=== PATIENT | female | born 1935 | race American Indian/Alaskan Native ===

== ENCOUNTER 2017-10-02 11:00 | Emergency (ER) | payer MEDICARE ==
--- NOTE | 2017-10-02 11:36 | C.PDOC ---
History Of Present Illness 81 y/o female, w/ PMhx of HTN, seizures, brain tumor ( remote) s/p surgery BIBA , from assisted living facility complaining of pain to right wrist. As per patient's son, there was an elevator door which closed on the patient's right wrist 1 month ago. Patient did not seek medical attention. There is no clear reason as to why the patient took 1 month to seek medical attention. Patient has a possible history of dementia, she does not remember how long the wrist has been hurting. She notes that the pain is constant and dull and she has decreased use of the right wrist. Denies having headache, fever, and chills. Time Seen by Provider: 10/02/17 11:12 Chief Complaint (Nursing): Upper Extremity Problem/Injury History Per: Patient History/Exam Limitations: no limitations Onset/Duration Of Symptoms: Days Current Symptoms Are (Timing): Still Present Severity: Moderate Past Medical History Reviewed: Historical Data, Nursing Documentation, Vital Signs Vital Signs: Last Vital Signs Temp 98.9 F 10/02/17 11:05 Pulse 95 H 10/02/17 11:05 Resp 14 10/02/17 11:05 BP 132/70 10/02/17 11:05 Pulse Ox 98 10/02/17 11:38 - Medical History PMH: HTN, Seizures Denies: Alzheimer's Disease, Anemia, Anxiety, Arthritis, Asthma, Bipolar Disorder, Bronchitis, Cardia Arrhythmia, CHF, COPD, Crohn's Disease, Dementia, Depression, Diverticulitis, Emphysema, Fibromyalgia, Fractures, Gastrointestinal Ulcer, Gall Bladder Disease, HIV, Hypercholesterolemia, Hyperthyroidism, Hypothyroidism, Kidney Stones, Migraine, Mitral Valve Prolapse , Osteoporosis, Pancreatitis, Paranoia, Parkinson's Disease, Peripheral Edema, Pneumonia, Post Traumatic Stress Disorder, Chronic Kidney Disease, Schizophrenia , Sickle Cell Disease, Sexually Transmitted Disease, Sleep Apnea, TIA Surgical History: Denies: Appendectomy, Cholecystectomy, Coronary Stent, Pacemaker Family History: States: No Known Family Hx - Social History Hx Tobacco Use: No Hx Alcohol Use: No Hx Substance Use: No - Immunization History Hx Tetanus Toxoid Vaccination: No Hx Influenza Vaccination: No Hx Pneumococcal Vaccination: No Review Of Systems Except As Marked, All Systems Reviewed And Found Negative. Constitutional: Negative for: Fever, Chills Musculoskeletal: Positive for: Other (right wrist pain) Neurological: Negative for: Headache Physical Exam - Physical Exam Appears: Non-toxic, No Acute Distress, Other (frail, elderly) Skin: Normal Color, Warm, Dry Head: Other (disfigurement tumor most likely due to tumor resection) Eye(s): bilateral: Normal Inspection Nose: Normal Oral Mucosa: Moist Neck: Supple Chest: Symmetrical Cardiovascular: Rhythm Regular Respiratory: Normal Breath Sounds, No Rales, No Rhonchi, No Wheezing Gastrointestinal/Abdominal: Normal Exam, Soft, No Tenderness, No Guarding, No Rebound Neurological/Psych: Oriented x3, Normal Speech ED Course And Treatment O2 Sat by Pulse Oximetry: 98 (RA) Pulse Ox Interpretation: Normal Medical Decision Making Medical Decision Making: Plan: --X-Ray- Right Wrist Patient daughter Cinthya Flower ([phone]) called to state she is working on getting the patient an aide. Spoke with PMD, Dr. Valentin, he was unaware of patient's injury. Requesting Dr. Morales for ortho. Disposition Discussed With Dr.: Juventino Valentin Counseled Patient/Family Regarding: Studies Performed, Diagnosis, Need For Followup - Disposition Referrals: Peewee Mcdonald MD [Staff Provider] - Disposition: HOME/ ROUTINE Disposition Time: 12:38 Condition: GUARDED Instructions: Common Wrist Injuries (DC) Forms: [facility] (Urdu), General Discharge Instructions - POA Present On Arrival: None - Clinical Impression Clinical Impression: Right wrist fracture - Scribe Statement The provider has reviewed the documentation as recorded by the Juanibe Bogdan Cheng Provider Attestation: All medical record entries made by the Scribe were at my direction and personally dictated by me. I have reviewed the chart and agree that the record accurately reflects my personal performance of the history, physical exam, medical decision making, and the department course for this patient. I have also personally directed, reviewed, and agree with the discharge instructions and disposition.
--- NOTE | 2017-10-02 12:07 | RAD ---
PROCEDURE: Right Wrist Radiographs. HISTORY: injury 1 month ago COMPARISON: None. FINDINGS: BONES: Comminuted, impacted, dorsally angulated fracture of the distal radius. Minimally displaced fracture of the ulnar styloid. JOINTS: Diffuse joint space narrowing. SOFT TISSUES: Circumferential soft tissue swelling. OTHER FINDINGS: None. IMPRESSION: Comminuted, impacted, dorsally angulated fracture of the distal radius. No definite intra-articular extension, although evaluation is difficult. Minimally displaced fracture of the ulnar styloid.
[2017-10-02 16:12] VITALS: BP 119/75; PULSE 83; RESP 16; TEMP 97.7; O2SAT 98
== END 2017-10-02 16:23 | disposition home or self-care (01) ==
LOC: C.ER 11:00
DX: S52.501A Unspecified fracture of the lower end of right radius, initial encounter for closed fracture (principal); W23.0XXA Caught, crushed, jammed, or pinched between moving objects, initial encounter; Y92.89 Other specified places as the place of occurrence of the external cause

== ENCOUNTER 2017-11-18 14:20 | Emergency (ER) | payer MEDICARE ==
[2017-11-18 15:28] VITALS: BP 136/84; PULSE 68; RESP 16; TEMP 97.8; O2SAT 100
--- NOTE | 2017-11-18 18:45 | C.PDOC ---
History Of Present Illness patient left ER prior to my history and physical Time Seen by Provider: 11/18/17 15:42 Chief Complaint (Nursing): Upper Extremity Problem/Injury Past Medical History Vital Signs: Last Vital Signs Temp 97.8 F 11/18/17 15:27 Pulse 68 11/18/17 15:27 Resp 16 11/18/17 15:27 BP 136/84 11/18/17 15:27 Pulse Ox 100 11/18/17 18:45 - Medical History PMH: HTN, Seizures Denies: Alzheimer's Disease, Anemia, Anxiety, Arthritis, Asthma, Bipolar Disorder, Bronchitis, Cardia Arrhythmia, CHF, COPD, Crohn's Disease, Dementia, Depression, Diverticulitis, Emphysema, Fibromyalgia, Fractures, Gastrointestinal Ulcer, Gall Bladder Disease, HIV, Hypercholesterolemia, Hyperthyroidism, Hypothyroidism, Kidney Stones, Migraine, Mitral Valve Prolapse , Osteoporosis, Pancreatitis, Paranoia, Parkinson's Disease, Peripheral Edema, Pneumonia, Post Traumatic Stress Disorder, Chronic Kidney Disease, Schizophrenia , Sickle Cell Disease, Sexually Transmitted Disease, Sleep Apnea, TIA Surgical History: Denies: Appendectomy, Cholecystectomy, Coronary Stent, Pacemaker Family History: States: Unknown Family Hx - Social History Hx Tobacco Use: No Hx Alcohol Use: No Hx Substance Use: No - Immunization History Hx Tetanus Toxoid Vaccination: No Hx Influenza Vaccination: No Hx Pneumococcal Vaccination: No ED Course And Treatment O2 Sat by Pulse Oximetry: 100 Disposition - Disposition Disposition: ELOPEMENT - ER ONLY Disposition Time: 16:00 Condition: UNKNOWN Forms: [employer] (Hebrew) - Clinical Impression Clinical Impression: Patient left without being seen
== END 2017-11-18 16:05 | disposition left against medical advice (07) ==
LOC: C.ER 14:20
DX: Z02.89 Encounter for other administrative examinations (principal); S69.91XA Unspecified injury of right wrist, hand and finger(s), initial encounter

== ENCOUNTER 2017-11-24 21:09 | Inpatient (IN) | payer MEDICAID, MEDICARE ==
--- NOTE | 2017-11-24 21:26 | C.PDOC ---
History Of Present Illness 81 year old female with PMHx of dementia, brain surgery is brought to the ED for evaluation. Patient was outside the [facility] saying "it is too hot" . Patient has history of dementia, states her is and she lives with her . Patient has chronic left sided facial droop. Patient denies fever, chills, nausea, vomit, CP, SOB, palpitations. Time Seen by Provider: 11/24/17 21:25 Chief Complaint (Nursing): Weakness/Neurological Deficit History Per: Patient, EMS History/Exam Limitations: clinical condition (history dementia) Onset/Duration Of Symptoms: Hrs Current Symptoms Are (Timing): Still Present Activity At Onset Of Symptoms: Sitting Associated Symptoms Preceding Syncopal Episode: No Predromal Symptoms (Sudden Onset) Seizure Or Post-ictal Symptoms: None Fall Associated With With Symptoms: No Severity: Moderate Pain Scale Rating Of: 4 Recent travel outside of the [place]: No Additional History Per: Patient, EMS - Symptoms Of CVA Current Coumadin Use?: No Recent Head Trauma: No Past Medical History Reviewed: Historical Data, Nursing Documentation, Vital Signs Vital Signs: Last Vital Signs Temp 98.6 F 11/24/17 21:13 Pulse 57 L 11/24/17 22:55 Resp 16 11/24/17 22:55 BP 145/56 L 11/24/17 22:55 Pulse Ox 99 11/24/17 22:55 - Medical History PMH: HTN, Seizures Denies: Alzheimer's Disease, Anemia, Anxiety, Arthritis, Asthma, Bipolar Disorder, Bronchitis, Cardia Arrhythmia, CHF, COPD, Crohn's Disease, Dementia, Depression, Diverticulitis, Emphysema, Fibromyalgia, Fractures, Gastrointestinal Ulcer, Gall Bladder Disease, HIV, Hypercholesterolemia, Hyperthyroidism, Hypothyroidism, Kidney Stones, Migraine, Mitral Valve Prolapse , Osteoporosis, Pancreatitis, Paranoia, Parkinson's Disease, Peripheral Edema, Pneumonia, Post Traumatic Stress Disorder, Chronic Kidney Disease, Schizophrenia , Sickle Cell Disease, Sexually Transmitted Disease, Sleep Apnea, TIA Surgical History: Denies: Appendectomy, Cholecystectomy, Coronary Stent, Pacemaker Family History: States: Unknown Family Hx - Social History Hx Tobacco Use: No Hx Alcohol Use: No Hx Substance Use: No - Immunization History Hx Tetanus Toxoid Vaccination: No Hx Influenza Vaccination: No Hx Pneumococcal Vaccination: No Review Of Systems Review Of Systems: ROS cannot be obtained secondary to pt's inabilty to answer questions. (duto her dementia) Physical Exam - Physical Exam Appears: Non-toxic Skin: Warm, Dry Head: Normacephalic, Other (chronic left sided facial droop) Eye(s): bilateral: Normal Inspection Oral Mucosa: Moist Neck: Supple Chest: Symmetrical Cardiovascular: Rhythm Regular Respiratory: Rales, No Rhonchi, No Wheezing Gastrointestinal/Abdominal: Soft, No Tenderness, No Guarding, No Rebound Back: Normal Inspection Extremity: No Tenderness, Pedal Edema (trace pedeal edema chronic ) Extremity: Bilateral: Atraumatic, Normal Color And Temperature, Normal ROM Pulses: Left Dorsalis Pedis: Normal, Right Dorsalis Pedis: Normal Neurological/Psych: No Oriented x3 (oriented X2) Disoriented To: Place Gait: Unsteady ED Course And Treatment - Laboratory Results Result Diagrams: 11/24/17 21:29 11/24/17 21:29 ECG: Interpreted By Me, Viewed By Me ECG Rhythm: Sinus Rhythm (68), Nonspecific Changes (lvh with repol abn) O2 Sat by Pulse Oximetry: 97 (ON RA) Pulse Ox Interpretation: Normal Progress Note: Plan: - CT head. - EKG. - Labs. - CXR Disposition Discussed With : Bunny Hunt Comment: accepted the pt on his service and took over the care at 1:39AM Doctor Will See Patient In The: Hospital Counseled Patient/Family Regarding: Studies Performed, Diagnosis - Disposition Disposition: HOSPITALIZED Disposition Time: 21:25 Condition: FAIR Forms: [facility] (Guamanian) - POA Present On Arrival: None - Clinical Impression Clinical Impression: CHF (congestive heart failure), Dementia - Scribe Statement The provider has reviewed the documentation as recorded by the Scribe Elia Moreira All medical record entries made by the Scribe were at my direction and personally dictated by me. I have reviewed the chart and agree that the record accurately reflects my personal performance of the history, physical exam, medical decision making, and the department course for this patient. I have also personally directed, reviewed, and agree with the discharge instructions and disposition. Decision To Admit - Pt Status Changed To: Hospital Disposition Of: Inpatient - Admit Certification Admit to Inpatient:: After my assessment, the patient will require hospitalization for at least two midnights. This is because of the severity of symptoms shown, intensity of services needed, and/or the medical risk in this patient being treated as an outpatient. - InPatient: Physician Admission Certification: I certify that this patient requires 2 or more midnights of care for the following reason:: After my assessment, the patient will require hospitalization for at least two midnights. This is because of the severity of symptoms shown, intensity of services needed, and/or the medical risk in this patient being treated as an outpatient. - . Bed Request Type: Telemetry Admitting Physician: Bunny Hunt Patient Diagnosis: CHF (congestive heart failure), Dementia
[2017-11-24 21:32] LABS: BASO % 0.5 % (0.0-2.0); EOS # 0.1 K/uL (0.0-0.7); HEMOGLOBIN 10.4 g/dL (11.0-16.0); LYMPH # 2.3 K/uL (1.0-4.3); LYMPH % 38.3 % (20.0-40.0); MEAN CORPUSCULAR HEMOGLOBIN 30.1 pg (27.0-31.0); MEAN CORPUSCULAR HGB CONC 34.1 g/dL (33.0-37.0); MEAN PLATELET VOLUME 7.5 fL (7.2-11.7); MONO # 0.5 K/uL (0.0-0.8); MONO % 9.1 % (0.0-10.0); NEUT % 50.1 % (50.0-75.0); NRBC % 0.1 % (0.0-2.0); RBC 3.44 Mil/uL (3.80-5.20); RED CELL DISTRIBUTION WIDTH 14.6 % (11.5-14.5)
[2017-11-24 21:36] LABS: MEAN CELL VOLUME 88.5 fL (81.0-99.0)
[2017-11-24 21:40] LABS: INR 1.1; PROTHROMBIN TIME 12.5 SECONDS (9.7-12.2)
[2017-11-24 21:56] LABS: ALB/GLOB RATIO 1.1 (1.0-2.1); ALT/SGPT 32 U/L (9-52); AST/SGOT 45 U/L (14-36); BLOOD UREA NITROGEN 17 mg/dL (7-17); CALCIUM 9.4 mg/dl (8.6-10.4); GFR NON-AFRICAN AMERICAN 60
[2017-11-24 22:05] LABS: B-TYPE NATRIURETIC PEPTIDE 6990 pg/mL (0-900); CK-MB 1.21 ng/mL (0.0-3.38)
--- NOTE | 2017-11-25 08:24 | RAD ---
Date of service: 11/24/2017 HISTORY: cp COMPARISON: No prior. FINDINGS: LUNGS: Vague low-density opacity projects over lateral right upper lung and inferior right scapular tip. A faint infiltrate here is a consideration. No dread air bronchograms appreciated Possible trace atelectatic changes left lung base - ill definition here PLEURA: . Minimal right pleural effusion No pneumothorax apparent. CARDIOVASCULAR: Mild cardiomegaly. Mild venous congestion Calcified aortic. OSSEOUS STRUCTURES: No significant abnormalities. VISUALIZED UPPER ABDOMEN: Cholecystectomy clips Probable splenic arterial calcifications OTHER FINDINGS: None. IMPRESSION: Cardiomegaly, mild pulmonary venous congestion. Minimal right pleural effusion Possible low-density infiltrate right upper lobe (versus summation effects). Correlate clinically
--- NOTE | 2017-11-25 08:38 | CT ---
Date of service: 11/24/2017 PROCEDURE: CT HEAD WITHOUT CONTRAST. HISTORY: weakness COMPARISON: None available. TECHNIQUE: Axial computed tomography images were obtained through the head/brain without intravenous contrast. Radiation dose: Total exam DLP = 778 mGy-cm. This CT exam was performed using one or more of the following dose reduction techniques: Automated exposure control, adjustment of the mA and/or kV according to patient size, and/or use of iterative reconstruction technique. FINDINGS: HEMORRHAGE: No intracranial hemorrhage. BRAIN: Left cerebellar encephalomalacia. Cerebellar atrophy. Mild diffuse cerebral atrophy. Prominent focal lucency in the left basal ganglia measuring 7 millimeters suggestive for lacunar infarct. VENTRICLES: Mild diffuse compensatory enlargement of the ventricles. CALVARIUM: Left suboccipital craniectomy. PARANASAL SINUSES: Unremarkable as visualized. No significant inflammatory changes. MASTOID AIR CELLS: Unremarkable as visualized. No inflammatory changes. OTHER FINDINGS: None. IMPRESSION: No acute intracranial abnormality. Cerebral and cerebellar atrophy. Left cerebellar encephalomalacia. Left basal ganglia lacunar infarct. If symptoms persists, correlation with MRI is recommended. These findings were preliminarily reported at 10:43 p.m. on 11/24/[address] Izzy Mccrary from [facility].
[2017-11-25] MEDS: Pantoprazole 20 mg EC Tab PO SCH (10:21)
--- NOTE | 2017-11-25 14:18 | CP.PCM.PCO ---
Physician Communication Note - Physician Communication Note Physician Communication Note: This is a patient of Dr. Valentin. He has accepted patient to his service.
--- NOTE | 2017-11-25 18:08 | CARD ---
APPROVED REPORT Date of service: 11/25/2017 EXAM: Two-dimensional and M-mode echocardiogram with Doppler and color Doppler. Other Information Quality : [employer] : INDICATION Abnormal EKG/Arrhythmia Congestive Heart Failure Palpitations 2D DIMENSIONS IVSd1.0 (0.7-1.1cm)LVDd3.9 (3.9-5.9cm) PWd1.0 (0.7-1.1cm)LVDs2.2 (2.5-4.0cm) FS (%) 43.5 %LVEF (%)75.3 (>50%) M-Mode DIMENSIONS Left Atrium (MM)4.45 (2.5-4.0cm)IVSd1.89 (0.7-1.1cm) Aortic Root2.90 (2.2-3.7cm)LVDd3.70 (4.0-5.6cm) Aortic Cusp Exc.1.85 (1.5-2.0cm)PWd0.66 (0.7-1.1cm) FS (%) 40 %LVDs2.22 (2.0-3.8cm) LVEF (%)71 (>50%) Mitral Valve MV E Grzgozuo93.1cm/sMV A Byfxamtn51.2cm/sE/A ratio3.1 TDI E/Lateral E'0.0E/Medial E'0.0 Tricuspid Valve TR Peak [id number]/sTR Peak Gr.[id number] LEFT VENTRICLE The left ventricle is normal size. There is mild to moderate left ventricular hypertrophy specially toward to apex but no significant intracavitary pressure difference. The left ventricular function is normal. The left ventricular ejection fraction is within the normal range. There is normal LV segmental wall motion. Transmitral Doppler flow pattern is Grade II-pseudonormal filling dynamics. RIGHT VENTRICLE The right ventricle is normal size. The right ventricular systolic function is normal. ATRIA The left atrium is moderately dilated. The right atrium is mildly dilated. AORTIC VALVE The aortic valve is mildly calcified but opens well. There is trace aortic regurgitation. There is no aortic valvular stenosis. MITRAL VALVE The mitral valveleaflets are normal. Mitral annular calcification is mild. Mitral regurgitation is mild. TRICUSPID VALVE The tricuspid valve is normal in structure. There is moderate tricuspid regurgitation. There is mild pulmonary hypertension. Right ventricular systolic pressure is estimated at - 42 mmHg. PULMONIC VALVE The pulmonary valve is normal in structure. There is mild pulmonic valvular regurgitation. GREAT VESSELS The aortic root displays mild to moderate sclerocalcific changes The IVC is normal in size and collapses >50% with inspiration. PERICARDIAL EFFUSION There is no pericardial effusion. <Conclusion> There is mild to moderate left ventricular hypertrophy toward to apex but no significant intracavitary pressure difference. The left ventricular function is normal. Transmitral Doppler flow pattern is Grade II-pseudonormal filling dynamics. The right ventricular systolic function is normal. The aortic valve is mildly calcified but opens well. There is trace aortic regurgitation. Mitral annular calcification is mild with mild mitral regurgitation Mild pulmonary hypertension. The aortic root displays mild to moderate sclerocalcific changes There is no pericardial effusion.
[2017-11-25] MEDS: Azithromycin 500mg/250ML NS 500 MG/250 ML BAG IVPB SCH (22:02)
--- NOTE | 2017-11-26 08:41 | HP ---
Copied To: Juventino Valentin DO Attending MD: Juventino Valentin DO HISTORY OF PRESENT ILLNESS: I know Camila very well from the office for many years. patient. She is an 81-year-old female who comes in with a past medical history of dementia, brain surgery, and was found on the street, I understand, lost and was brought into the emergency room. she got out of the house. She has history of dementia, brought in by EMS. She is pleasantly confused with a past medical history of hypertension, seizures, dementia. She has a left facial droop from the brain surgery. Very difficult to get a history from her. FAMILY HISTORY: Unknown family history. SOCIAL HISTORY: No smoking. No drinking. No drugs. REVIEW OF SYSTEMS: What I could tell, no acute vision or hearing changes. The speech is the same, although it is definitely changed from her old surgery. No neck pain. No chest pain. No shortness of breath. No abdominal pain. PHYSICAL EXAMINATION: GENERAL: She is alert. She knew who I was, but could not tell my name. She was smiling when she met me. VITAL SIGNS: She has 98.6 temp, 57 pulse, 16 respiratory rate, 145/56 blood pressure, 99% O2 sat. SKIN: Warm and dry. HEENT: She has left facial droop from an old surgery. Head is normocephalic. Throat is dry. NECK: Supple. HEART: Regular. LUNGS: Decreased breath sounds. Bilaterally occasional rales. She has a little bit congestion with cough. ABDOMEN: Soft. Nontender. Positive bowel sounds. No guarding. No rebound. No CVA tenderness. EXTREMITIES: Have no edema. NEUROLOGIC: At this time, she is alert and oriented x1. Gait is unsteady. I think she will need to be on one-to-one. We will see how the nurses handle her overnight. She has multiple tests. She has a 2-D echo, [id number] left ventricular hypertrophy. LABORATORY DATA: Sodium 143, potassium 3.9, BUN 17, creatinine 0.9. GFR is greater than 62. Sugar is 93, calcium 9.4. Total bili is 0.4, AST is 45, ALT is 32, alk phos 78, Troponin I is 0.05. BNP was very high at 6990. Total protein is 7.7. INR is 1.1. White count 6, hemoglobin 10.4, hematocrit 30.4, platelets are 184. Head CT shows no acute intracranial abnormality, but it is old finding. The chest x-ray shows cardiomegaly, mild pulmonary vascular congestion, minimal right pleural effusion, low density in the right upper lobe. ASSESSMENT AND PLAN: She will be on Lasix intravenously. She will be on Rocephin intravenously, Zithromax intravenously. She will consult with Pulmonary, Cardiology, Neurology for change of mentation, and Psychiatry. Check her labs tomorrow. Physical therapy. We will diurese and give antibiotics. Hopefully, she will improve. May be wake up a little bit in the next 24 hours. It should be for a few days. She is being admitted to [facility]. We will see tomorrow. Juventino Valentin DO MTDD
--- NOTE | 2017-11-26 09:03 | HP ---
Copied To: Bunny Hunt MD Attending MD: Bunny Hunt MD HISTORY OF PRESENT ILLNESS: An 81-year-old female, chief complaint weakness, fatigue, tiredness. Came to hospital, advised admission. The patient has dementia. PHYSICAL EXAMINATION: GENERAL: The patient is awake, alert, and oriented. VITAL SIGNS: Temperature 98.5. HEENT: Within normal limits. NECK: Supple. CHEST: Symmetrical. HEART: Regular. ABDOMEN: Soft. EXTREMITIES: No edema. IMPRESSION: Dementia. altered mental status. Bed rest, Supportive care. Bunny Hunt MD
--- NOTE | 2017-11-26 09:42 | CP.PCM.CON ---
<Yaneli Verde - Last Filed: 11/26/17 17:10> History of Present Illness - History of Present Illness History of Present Illness: Cardiology Consult Note- Dr. Rosenbegr's service 81 year old female with past medical history significant for brain mass s/p neurosurgical intervention, seizure disorder, HTN, CHF, and dementia presented to the ER 11/25/17. Patient is unsure of why she is here. Per ED report[facility] being too [facility]. She states that she currently has no complaints. PMHx: as stated above PSHx: neurosurgical intervention of brain mass ~1994 in [facility] Hx: Non-contributory Social Hx: denies tobacco, alcohol and illicit drug use Allergies: NKDA History supplemented with information from the medical record. Review of Systems - Review of Systems Systems not reviewed;Unavailable: Dementia, Other (limited due to dementia) - Cardiovascular Cardiovascular: absent: Chest Pain, Chest Pain at Rest - Respiratory Respiratory: absent: Dyspnea on Exertion - Gastrointestinal Gastrointestinal: absent: Nausea, Vomiting - Integumentary Integumentary: Dry Skin, Swelling - Neurological Neurological: Other - Psychiatric Psychiatric: Memory Loss Past Patient History - Infectious Disease Hx of Infectious Diseases: None - Past Medical History & Family History Past Medical History?: Yes - Past Social History Smoking Status: Smoker Currrent Status Unknown Alcohol: None Drugs: Denies - CARDIAC Hx Hypertension: Yes - PULMONARY Hx Respiratory Disorders: No Hx Asthma: No Hx Bronchitis: No Hx Chronic Obstructive Pulmonary Disease (COPD): No Hx Emphysema: No Hx Pneumonia: No Hx Sleep Apnea: No - NEUROLOGICAL Hx Neurological Disorder: Yes Hx Alzheimer's Disease: No Hx Dementia: No Hx Migraine: No Hx Parkinson's Disease: No Hx Seizures: Yes Hx Transient Ischemic Attacks (TIA): No - HEENT Hx HEENT Problems: No - RENAL Hx Chronic Kidney Disease: No Hx Kidney Stones: No - ENDOCRINE/METABOLIC Hx Endocrine Disorders: No Hx Hyperthyroidism: No Hx Hypothyroidism: No - HEMATOLOGICAL/ONCOLOGICAL Hx Blood Disorders: No Hx Anemia: No Hx Human Immunodeficiency Virus (HIV): No Hx Sickle Cell Disease: No - INTEGUMENTARY Hx Dermatological Problems: No - MUSCULOSKELETAL/RHEUMATOLOGICAL Hx Musculoskeletal Disorders: No Hx Arthritis: No Hx Falls: Yes Hx Fractures: No Hx Osteoporosis: No - GASTROINTESTINAL Hx Gastrointestinal Disorders: No Hx Crohn's Disease: No Hx Diverticulitis: No Hx Gall Bladder Disease: No Hx Pancreatitis: No - GENITOURINARY/GYNECOLOGICAL Hx Genitourinary Disorders: No Hx Sexually Transmitted Disorders: No - PSYCHIATRIC Hx Psychophysiologic Disorder: No Hx Anxiety: No Hx Bipolar Disorder: No Hx Depression: No Hx Paranoia: No Hx Post Traumatic Stress Disorder: No Hx Schizophrenia: No Hx Substance Use: No - SURGICAL HISTORY Hx Surgeries: No Hx Appendectomy: No Hx Cholecystectomy: No Hx Coronary Stent: No - ANESTHESIA Hx Anesthesia: Yes Hx Anesthesia Reactions: No Hx Malignant Hyperthermia: No Meds Allergies/Adverse Reactions: Allergies Allergy/AdvReac Type Severity Reaction Status Date / Time No Known Allergies Allergy Verified 11/18/17 15:28 - Medications Medications: Current Medications Furosemide (Lasix) 40 mg IVP DAILY [facility] Heparin Sodium (Porcine) (Heparin) 5,000 units SC Q12 [facility] Last Admin: 11/25/17 22:02 Dose: Not Given Ceftriaxone Sodium 1 gm/ (Sodium Chloride) 100 mls @ 100 mls/hr IVPB DAILY [facility] PRN Reason: Protocol Azithromycin (Zithromax 500mg In Ns Addvantage) 500 mg in 250 mls @ 167 mls/hr IVPB Q24H [facility] PRN Reason: Protocol Last Admin: 11/25/17 22:02 Dose: 167 mls/hr Pantoprazole Sodium (Protonix Ec Tab) 20 mg PO DAILY [facility] Last Admin: 11/25/17 10:21 Dose: Not Given Physical Exam - Constitutional Appears: Non-toxic, No Acute Distress, Confused - Head Exam Head Exam: ATRAUMATIC - Eye Exam Eye Exam: EOMI Pupil Exam: NORMAL ACCOMODATION - ENT Exam ENT Exam: Mucous Membranes Moist - Neck Exam Neck exam: Positive for: Normal Inspection - Respiratory Exam Respiratory Exam: NORMAL BREATHING PATTERN. absent: Wheezes - Cardiovascular Exam Cardiovascular Exam: REGULAR RHYTHM, +S1, +S2. absent: Tachycardia, JVD - GI/Abdominal Exam GI & Abdominal Exam: Normal Bowel Sounds, Soft. absent: Tenderness - Extremities Exam Extremities exam: Positive for: pedal edema - Back Exam Back exam: FULL ROM - Neurological Exam Neurological exam: Alert, Oriented x3 Additional comments: facial asymmetry appreciated- (chronic) - Psychiatric Exam Psychiatric exam: Flat Affect - Skin Skin Exam: Dry, Intact, Normal Color, Warm Results - Vital Signs Recent Vital Signs: Last Vital Signs Temp 98.2 F 11/26/17 07:00 Pulse 55 L 11/26/17 08:55 Resp 20 11/26/17 07:00 BP 177/76 H 11/26/17 07:00 Pulse Ox 98 11/26/17 07:00 - Labs Result Diagrams: 11/26/17 11:18 11/26/17 13:52 Assessment & Plan (1) Altered mental status Assessment and Plan: Patient has underlying history of dementia. On Memantine. Considerations for 1:[address]- negative for bleed. Encephalomalacia , atrophy of cerebrum and cerebellum noted. Refer to complete report. Recommendations to rule out underlying infection Management per primary Status: Acute (2) CHF (congestive heart failure) Assessment and Plan: Elevated BNP 6990 F/U Echo On Lasix 40 mg IV daily Troponin x1 negative Status: Chronic (3) HTN (hypertension) Assessment and Plan: Home Antihypertensive agents unknown. Normotensive at this time. Will monitor and manage accordingly. Status: Acute (4) History of seizures Assessment and Plan: Unclear whether patient is on maintenance antiepileptics Home medications will need to be confirmed. Status: Acute (5) Prophylactic measure Assessment and Plan: Heparin SC Q12 PPI 20 mg PO daily Status: Acute <Porfirio Rosenberg - Last Filed: 11/27/17 06:55> Meds - Medications Medications: Current Medications Furosemide (Lasix) 40 mg IVP DAILY [facility] Last Admin: 11/26/17 10:44 Dose: 40 mg Heparin Sodium (Porcine) (Heparin) 5,000 units SC Q12 [facility] Last Admin: 11/26/17 21:48 Dose: Not Given Ceftriaxone Sodium 1 gm/ (Sodium Chloride) 100 mls @ 100 mls/hr IVPB DAILY [facility] PRN Reason: Protocol Last Admin: 11/26/17 10:44 Dose: 100 mls/hr Azithromycin (Zithromax 500mg In Ns Addvantage) 500 mg in 250 mls @ 167 mls/hr IVPB Q24H [facility] PRN Reason: Protocol Last Admin: 11/26/17 20:04 Dose: 167 mls/hr Lorazepam (Ativan) 0.5 mg PO TID PRN PRN Reason: Agitation Memantine (Namenda) 10 mg PO DAILY [facility] Pantoprazole Sodium (Protonix Ec Tab) 20 mg PO DAILY [facility] Last Admin: 11/26/17 10:44 Dose: 20 mg Results - Vital Signs Recent Vital Signs: Last Vital Signs Temp 97.8 F 11/26/17 23:22 Pulse 78 11/27/17 00:15 Resp 18 11/26/17 23:22 BP 104/55 L 11/26/17 23:22 Pulse Ox 96 11/26/17 23:22 - Labs Result Diagrams: 11/26/17 11:18 11/26/17 13:52 Labs: Laboratory Results - last 24 hr 11/26/17 11/26/17 11:18 13:52 WBC 6.6 RBC 4.19 Hgb 12.7 D Hct 37.0 MCV 88.3 MCH 30.3 MCHC 34.3 RDW 14.4 Plt Count 168 MPV 8.8 Neut % (Auto) 59.4 Lymph % (Auto) 30.4 [place] % (Auto) 7.9 Eos % (Auto) 1.4 Baso % (Auto) 0.9 Neut # (Auto) 4.0 Lymph # (Auto) 2.0 [place] # (Auto) 0.5 Eos # (Auto) 0.1 Baso # (Auto) 0.1 Sodium 142 Potassium 3.7 Chloride 100 Carbon Dioxide 30 Anion Gap 16 BUN 17 Creatinine 1.0 Est GFR ( Amer) > 60 Est GFR (Non-Af Amer) 53 Random Glucose 124 H Calcium 9.5 Phosphorus 3.8 Magnesium 1.8 Total Bilirubin 0.6 AST 46 H ALT 34 Alkaline Phosphatase 94 Total Protein 9.2 H Albumin 4.4 Globulin 4.7 H Albumin/Globulin Ratio 0.9 L Vitamin B12 339 Folate 8.7 TSH 3rd Generation 0.99 Assessment & Plan - Assessment and Plan (Free Text) Assessment: Patient seen and evaluated personally by dc Plan of care d/w the medical record coder and as documented
[2017-11-26] MEDS: Pantoprazole 20 mg EC Tab PO SCH (10:44)
--- NOTE | 2017-11-26 10:53 | PN ---
Copied To: Juventino Valentin DO Attending MD: Juventino Valentin DO DATE: 11/26/2017 SUBJECTIVE: I saw Camila resting comfortably in bed. She has finally got the sleep about 4 a.m. She is pleasantly confused this morning, may be a little more alert. I am aware she is on Rocephin, heparin, Lasix, Protonix, and azithromycin. PHYSICAL EXAMINATION: GENERAL: She is alert. VITAL SIGNS: She has 97.1 temp, 67 pulse, 147/63 blood pressure, 20 respiratory rate, 98% O2 sat on room air. HEENT: Atraumatic and normocephalic. Left side of the face is drooped. There is an old surgical HEART: Regular rate. LUNGS: Decreased breath sounds, but clear. ABDOMEN: Soft. EXTREMITIES: No edema. They were edematous yesterday. LABORATORY DATA: Labs are pending this morning. ASSESSMENT AND PLAN: She had consults with Urology, Psychiatry and Pulmonary. She is on intravenous antibiotics, heparin, intravenous Lasix. I think she is improving. She is here with a congestive heart failure picture and a pneumonia picture. Hopefully, she will improve and will find out if she needs physical therapy or she might not. She had walked around the [place] last night. Continue aggressive treatment and care on Camila Serrano, who has pneumonia, congestive heart failure and worsening confusion. Juventino Valentin DO [facility]
[2017-11-26 11:33] LABS: BASO # 0.1 K/uL (0.0-0.2); BASO % 0.9 % (0.0-2.0); EOS # 0.1 K/uL (0.0-0.7); EOS % 1.4 % (0.0-4.0); LYMPH % 30.4 % (20.0-40.0); MEAN CELL VOLUME 88.3 fL (81.0-99.0); MEAN CORPUSCULAR HEMOGLOBIN 30.3 pg (27.0-31.0); MEAN CORPUSCULAR HGB CONC 34.3 g/dL (33.0-37.0); MEAN PLATELET VOLUME 8.8 fL (7.2-11.7); MONO # 0.5 K/uL (0.0-0.8); MONO % 7.9 % (0.0-10.0); NEUT % 59.4 % (50.0-75.0); NRBC % 0.1 % (0.0-2.0); RBC 4.19 Mil/uL (3.80-5.20); RED CELL DISTRIBUTION WIDTH 14.4 % (11.5-14.5); WHITE BLOOD COUNT 6.6 K/uL (4.8-10.8)
[2017-11-26 11:42] LABS: HEMOGLOBIN 12.7 g/dL (11.0-16.0)
[2017-11-26 14:13] LABS: ALB/GLOB RATIO 0.9 (1.0-2.1); ALBUMIN 4.4 g/dL (3.5-5.0); ALT/SGPT 34 U/L (9-52); AST/SGOT 46 U/L (14-36); BLOOD UREA NITROGEN 17 mg/dL (7-17); CALCIUM 9.5 mg/dl (8.6-10.4); GFR NON-AFRICAN AMERICAN 53
--- NOTE | 2017-11-26 14:16 | CARD ---
APPROVED REPORT Date of service: 11/24/2017 EKG Measurement Heart [id number] OR [id number] <Conclusion> Sinus rhythm with premature atrial complexes Left ventricular hypertrophy with repolarization abnormality Abnormal ECG
[2017-11-26 15:20] LABS: FOLATE 8.7 ng/mL
--- NOTE | 2017-11-26 17:42 | CP.PCM.CON ---
History of Present Illness - History of Present Illness History of Present Illness: reason for consultation: abnormal chest x-ray and possible pneumonia Patient is an 81 year-old female with past medical history of hypertension, seizure disorder and brain mass s/p neurosurgical intervention in the that presented to [facility] for being feeling hot. chest x-ray done showed questionable right upper lung infiltrate. Patient denies shortness of breath, denies cough, denies fever chills, denies night sweats. Patient also found to have elevated BNP. Patient is a poor historian 12point ROS as per HPI above, otherwise negative PMH: as stated above PSH: neurosurgical intervention of brain mass ~1994 in [place] Allergies: NKDA Social hx: denies tobacco, alcohol and illicit drug use Family Hx: Non-contributory Review of Systems - Review of Systems Systems not reviewed;Unavailable: Language Barrier Past Patient History - Infectious Disease Hx of Infectious Diseases: None - Past Medical History & Family History Past Medical History?: Yes - Past Social History Smoking Status: Smoker Currrent Status Unknown Alcohol: None Drugs: Denies - CARDIAC Hx Hypertension: Yes - PULMONARY Hx Respiratory Disorders: No Hx Asthma: No Hx Bronchitis: No Hx Chronic Obstructive Pulmonary Disease (COPD): No Hx Emphysema: No Hx Pneumonia: No Hx Sleep Apnea: No - NEUROLOGICAL Hx Neurological Disorder: Yes Hx Alzheimer's Disease: No Hx Dementia: No Hx Migraine: No Hx Parkinson's Disease: No Hx Seizures: Yes Hx Transient Ischemic Attacks (TIA): No - HEENT Hx HEENT Problems: No - RENAL Hx Chronic Kidney Disease: No Hx Kidney Stones: No - ENDOCRINE/METABOLIC Hx Endocrine Disorders: No Hx Hyperthyroidism: No Hx Hypothyroidism: No - HEMATOLOGICAL/ONCOLOGICAL Hx Blood Disorders: No Hx Anemia: No Hx Human Immunodeficiency Virus (HIV): No Hx Sickle Cell Disease: No - INTEGUMENTARY Hx Dermatological Problems: No - MUSCULOSKELETAL/RHEUMATOLOGICAL Hx Musculoskeletal Disorders: No Hx Arthritis: No Hx Falls: Yes Hx Fractures: No Hx Osteoporosis: No - GASTROINTESTINAL Hx Gastrointestinal Disorders: No Hx Crohn's Disease: No Hx Diverticulitis: No Hx Gall Bladder Disease: No Hx Pancreatitis: No - GENITOURINARY/GYNECOLOGICAL Hx Genitourinary Disorders: No Hx Sexually Transmitted Disorders: No - PSYCHIATRIC Hx Psychophysiologic Disorder: No Hx Anxiety: No Hx Bipolar Disorder: No Hx Depression: No Hx Paranoia: No Hx Post Traumatic Stress Disorder: No Hx Schizophrenia: No Hx Substance Use: No - SURGICAL HISTORY Hx Surgeries: No Hx Appendectomy: No Hx Cholecystectomy: No Hx Coronary Stent: No - ANESTHESIA Hx Anesthesia: Yes Hx Anesthesia Reactions: No Hx Malignant Hyperthermia: No Meds Allergies/Adverse Reactions: Allergies Allergy/AdvReac Type Severity Reaction Status Date / Time No Known Allergies Allergy Verified 11/18/17 15:28 - Medications Medications: Current Medications Furosemide (Lasix) 40 mg IVP DAILY [facility] Last Admin: 11/26/17 10:44 Dose: 40 mg Heparin Sodium (Porcine) (Heparin) 5,000 units SC Q12 [facility] Last Admin: 11/26/17 10:44 Dose: 5,000 units Ceftriaxone Sodium 1 gm/ (Sodium Chloride) 100 mls @ 100 mls/hr IVPB DAILY [facility] PRN Reason: Protocol Last Admin: 11/26/17 10:44 Dose: 100 mls/hr Azithromycin (Zithromax 500mg In Ns Addvantage) 500 mg in 250 mls @ 167 mls/hr IVPB Q24H [facility] PRN Reason: Protocol Last Admin: 11/25/17 22:02 Dose: 167 mls/hr Memantine (Namenda) 10 mg PO DAILY [facility] Pantoprazole Sodium (Protonix Ec Tab) 20 mg PO DAILY [facility] Last Admin: 11/26/17 10:44 Dose: 20 mg Physical Exam - Head Exam Head Exam: ATRAUMATIC, NORMOCEPHALIC - ENT Exam ENT Exam: Mucous Membranes Moist - Neck Exam Neck exam: Positive for: Normal Inspection - Respiratory Exam Respiratory Exam: Clear to Auscultation Bilateral - Cardiovascular Exam Cardiovascular Exam: REGULAR RHYTHM Results - Vital Signs Recent Vital Signs: Last Vital Signs Temp 98.5 F 11/26/17 15:00 Pulse 60 11/26/17 16:51 Resp 20 11/26/17 15:00 BP 107/62 11/26/17 15:00 Pulse Ox 97 11/26/17 15:00 - Labs Result Diagrams: 11/26/17 11:18 11/26/17 13:52 Labs: Laboratory Results - last 24 hr 11/26/17 11/26/17 11:18 13:52 WBC 6.6 RBC 4.19 Hgb 12.7 D Hct 37.0 MCV 88.3 MCH 30.3 MCHC 34.3 RDW 14.4 Plt Count 168 MPV 8.8 Neut % (Auto) 59.4 Lymph % (Auto) 30.4 [place] % (Auto) 7.9 Eos % (Auto) 1.4 Baso % (Auto) 0.9 Neut # (Auto) 4.0 Lymph # (Auto) 2.0 [place] # (Auto) 0.5 Eos # (Auto) 0.1 Baso # (Auto) 0.1 Sodium 142 Potassium 3.7 Chloride 100 Carbon Dioxide 30 Anion Gap 16 BUN 17 Creatinine 1.0 Est GFR ( Amer) > 60 Est GFR (Non-Af Amer) 53 Random Glucose 124 H Calcium 9.5 Phosphorus 3.8 Magnesium 1.8 Total Bilirubin 0.6 AST 46 H ALT 34 Alkaline Phosphatase 94 Total Protein 9.2 H Albumin 4.4 Globulin 4.7 H Albumin/Globulin Ratio 0.9 L Vitamin B12 339 Folate 8.7 TSH 3rd Generation 0.99 Assessment & Plan (1) CHF (congestive heart failure) Status: Chronic Comment: unlikely pneumonia. Patient does not have fever, cough, elevated white count and chest x-ray questionable infiltrate. Continue Lasix. Check procalcitonin level
--- NOTE | 2017-11-26 18:27 | CON ---
Copied To: Mikey Downey MD Attending MD: Mikey Downey MD DATE: 11/26/2017 NEUROLOGY CONSULTATION CHIEF COMPLAINT: Confusion. HISTORY OF PRESENTING ILLNESS: This is an 81-year-old woman with past medical history of hypertension, history of neurosurgical intervention for a brain mass in 1994 in [place], status post seizure disorder and was on phenobarbital at that particular time, history of deconditioning, history of generalized weakness, history of CHF, comes into the hospital with generalized weakness, shortness of breath, confusion and very deconditioned and was extremely hot and was unaware where she was. 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 She has cerebral atrophy. She follows commands and moving all extremities, deconditioned. She had elevated BNP and has been treated for CHF exacerbation. PAST MEDICAL HISTORY: As above. SOCIAL HISTORY: No illicit drug abuse, smoking, or EtOH abuse. ALLERGIES: NO KNOWN DRUG ALLERGIES. MEDICATIONS: Reviewed by nurse reconciliation sheet. REVIEW OF SYSTEMS: A 14-point review of systems negative except in the HPI. FAMILY HISTORY: Noncontributory. LABORATORY DATA: Sodium is 142, potassium 3.7, chloride 100, carbon dioxide 30, BUN of 17, creatinine of 1, and random glucose 124. PHYSICAL EXAMINATION VITAL SIGNS: Temperature 98.5, pulse rate is 60, blood pressure 107/60, respiratory rate 20, and oxygen saturation 97% via room air. GENERAL: The patient is sitting up in bed, in no acute distress. HEENT: Atraumatic, normocephalic. PERRLA. Extraocular muscles are intact. NECK: Supple. No JVD. No adenopathy noted. LUNGS: Decreased breath sounds bilaterally. HEART: S1 and S2. Normal rate and rhythm. No murmur, rubs, or gallops. ABDOMEN: Soft, nontender, nondistended. Bowel sounds are present. EXTREMITIES: No clubbing. No cyanosis. Peripheral pulses are 2+ bilaterally. NEUROLOGIC: The patient is alert and oriented to person and place. Not much of month and year. She is a poor historian. Recall after five minutes is 0/3. Poor attention span. Slow thought process. Cranial nerves II through XII are intact. Motor: Slightly deconditioned. Increased tone throughout. Moves all extremities equally. No pronator drift seen. Sensory exam: Decreased light touch and pinprick up to the calves bilaterally, decreased vibration of the toes. DTRs are 2+, throughout, 1 at both knees and ankles. Coordination: [id number] intact. No dysmetria noted. ASSESSMENT: This is an 81-year-old woman with past medical history with hypertension, congestive heart failure, history of brain mass with removal in , had a seizure episode secondary to encephalomalacia, therefore was placed on phenobarbital at that time. Currently, no seizure-like events since then. Came in for generalized weakness, reports worsening confusion, shortness of breath, found to have a congestive heart failure picture, superimposed underlying causing cognitive impairment. RECOMMENDATIONS: At this time, we recommend: 1. precautions. 2. Continue with Lasix 40 mg IV daily for underlying CHF picture. 3. Zithromax for underlying possible pneumonia picture. 4. Frequent orientation throughout the day. 5. PT, OT and most likely recommended some form of subacute rehab for underlying decondition state. At this time, continue to monitor electrolytes and correct accordingly and since the patient does not have any seizure-like events, we will hold off any ADs at this time. We will recommend some Namenda 10 mg p.o. daily for cognitive impairment. Thank you for this consult. Mikey Downey MD
[2017-11-26] MEDS: Azithromycin 500mg/250ML NS 500 MG/250 ML BAG IVPB SCH (20:04)
--- NOTE | 2017-11-27 00:34 | CON ---
Copied To: Lukas Mack MD Attending MD: Lukas Mack MD PSYCHIATRIC CONSULTATION DATE: 11/26/2017 Note, the patient is a very poor historian. Collateral information taken from the chart, also from the social science professor who gave some information. CHIEF COMPLAINT AND REASON FOR CONSULTATION: The patient with history of dementia. HISTORY OF PRESENT ILLNESS: The patient is an 81-year-old female with history of dementia as well as history of brain tumor, status post surgery, history of seizure disorder, CHF, hypertension. The patient was brought into the emergency room after she was found outside the [facility] complaining it was too hot. The patient does not know why she is in the hospital, but she also states that she was walking around her neighborhood. She could not give much information, she was unsure also why she is in the hospital and wants to go home. The patient is confused and referred for dementia. According to the social science professor, the patient lives with her son, but her son is a driver license reviewing officer and the patient is left at the house alone. She states that she wants to go home, but staff noted that the patient is also with confusion, needs assistance especially going to the bathroom as her gait is unsteady. Other than that, she has no other complains and wants to go home. PAST PSYCHIATRIC HISTORY: History of dementia, as well as history of brain surgery in the past. MEDICATIONS: The patient is on no meds. ALLERGIES: NO KNOWN ALLERGIES. DRUG AND ALCOHOL HISTORY: Denies any. MEDICAL HISTORY: As stated history of brain mets, status post surgery, history of seizure, hypertension, CHF. PSYCHOSOCIAL HISTORY: The patient lives with her son. The patient could not give much information. PHYSICAL EXAMINATION: VITAL SIGNS: Temperature is 98.2, pulse 55, blood pressure 168/78, respirations 20, oxygen saturation is 98%. CURRENT MEDICATIONS: List of current medications: The patient is on ceftriaxone, heparin, Lasix, azithromycin, pantoprozole. LABORATORY DATA: The patient*s WBC is 6.6, H and H are 12.7/37. Sodium is 143, potassium 3.9. Liver function tests are within normal limits. REVIEW OF SYSTEMS: GENERAL: The patient is alert, but confused, disoriented to place, oriented only to the person and time. The patient wants to go home. The patient is seen in her room. According to the staff, she wanted to leave the hospital earlier. SKIN: No diaphoresis. HEENT: Not complaining of headache or dizziness. NECK: Supple. RESPIRATORY: No dyspnea. CARDIOVASCULAR: No chest pain. GASTROINTESTINAL: No nausea, no vomiting. EXTREMITIES: Gait is unsteady. MUSCULOSKELETAL: The patient is feeling weak. NEURO: Alert with periods of confusion. GENITOURINARY: No dysuria. She had a CAT scan of the head done earlier that showed no acute intracranial abnormality, showed cerebral and cerebellar atrophy, history of left cerebral encephalomalacia, and left basal ganglia lacunar infract. MENTAL STATUS EXAMINATION: Elderly female, looks stated age, about 5 feet 6 inches, and weighs 140 pounds, pleasantly confused, oriented x1 only to person. Speech is spontaneous. Affect is restricted. Mood is irritable, dysphoric. Thought process confused. Thought content, the patient wants to go home, no overt psychosis. No suicidal or homicidal ideation. Attention and memory seem to be impaired. Insight and judgment impaired. Impulse control is guarded at this time. IMPRESSION: Dementia with mood changes, as well as delirium, metabolic encephalopathy. PLAN AND RECOMMENDATIONS: The patient was seen. Meds reviewed. The patient will need somebody to keep an eye on her at home due to her dementia. Other than that, we will check first B12, TSH, and folic acid. The patient ordered a CAT scan and the patient may need home care services at home as her son works. The patient cannot be left at home by herself as the patient has already wondered. We will try to see if we can give some medication for dementia once the other labs, especially TSH, B12, and folate are obtained. The patient also may benefit from subacute rehab as her gait seems to be unsteady and she may benefit from her conditioning once medically cleared. Lukas Mack MD MTDD
[2017-11-27 08:15] LABS: BASO % 0.5 % (0.0-2.0); EOS # 0.1 K/uL (0.0-0.7); EOS % 2.8 % (0.0-4.0); LYMPH # 1.9 K/uL (1.0-4.3); LYMPH % 38.8 % (20.0-40.0); MEAN CELL VOLUME 89.2 fL (81.0-99.0); MEAN CORPUSCULAR HEMOGLOBIN 30.2 pg (27.0-31.0); MEAN CORPUSCULAR HGB CONC 33.8 g/dL (33.0-37.0); MEAN PLATELET VOLUME 7.7 fL (7.2-11.7); MONO # 0.4 K/uL (0.0-0.8); MONO % 8.5 % (0.0-10.0); NEUT # 2.5 K/uL (1.8-7.0); NEUT % 49.4 % (50.0-75.0); NRBC % 0.1 % (0.0-2.0); RBC 3.97 Mil/uL (3.80-5.20); RED CELL DISTRIBUTION WIDTH 14.2 % (11.5-14.5)
[2017-11-27 08:58] LABS: ALBUMIN 3.8 g/dL (3.5-5.0); CALCIUM 8.9 mg/dl (8.6-10.4)
--- NOTE | 2017-11-27 10:33 | CP.PCM.PN ---
Subjective - Date & Time of Evaluation Date of Evaluation: 11/27/17 Time of Evaluation: 09:00 - Subjective Subjective: Patient seen and examined No shortness of breath Afebrile Complaining of weakness Being treated for CHF Echocardiogram consistent with diastolic dysfunction Unlikely pneumonia Objective - Vital Signs/Intake and Output Vital Signs (last 24 hours): Temp Pulse Resp BP Pulse Ox 97.9 F 69 20 107/67 98 11/27/17 07:37 11/27/17 07:37 11/27/17 07:37 11/27/17 07:37 11/27/17 07:37 Intake and Output: 11/27/17 11/27/17 06:59 18:59 Intake Total 550 Balance 550 - Medications Medications: Current Medications Furosemide (Lasix) 40 mg IVP DAILY [facility] Last Admin: 11/26/17 10:44 Dose: 40 mg Heparin Sodium (Porcine) (Heparin) 5,000 units SC Q12 [facility] Last Admin: 11/26/17 21:48 Dose: Not Given Ceftriaxone Sodium 1 gm/ (Sodium Chloride) 100 mls @ 100 mls/hr IVPB DAILY [facility] PRN Reason: Protocol Last Admin: 11/26/17 10:44 Dose: 100 mls/hr Azithromycin (Zithromax 500mg In Ns Addvantage) 500 mg in 250 mls @ 167 mls/hr IVPB Q24H [facility] PRN Reason: Protocol Last Admin: 11/26/17 20:04 Dose: 167 mls/hr Lorazepam (Ativan) 0.5 mg PO TID PRN PRN Reason: Agitation Memantine (Namenda) 10 mg PO DAILY [facility] Pantoprazole Sodium (Protonix Ec Tab) 20 mg PO DAILY [facility] Last Admin: 11/26/17 10:44 Dose: 20 mg - Labs Labs: 11/27/17 08:03 11/27/17 08:03 PT 12.5 SECONDS (9.7-12.2) H 11/24/17 21:29 INR 1.1 11/24/17 21:29 APTT 39 SECONDS (21-34) H 11/24/17 21:29 - Head Exam Head Exam: ATRAUMATIC, NORMOCEPHALIC - ENT Exam ENT Exam: Mucous Membranes Moist - Neck Exam Neck Exam: Normal Inspection - Respiratory Exam Respiratory Exam: Clear to Ausculation Bilateral - Cardiovascular Exam Cardiovascular Exam: REGULAR RHYTHM - GI/Abdominal Exam GI & Abdominal Exam: Soft, Normal Bowel Sounds Assessment and Plan (1) CHF (congestive heart failure) Assessment & Plan: continue Lasix Procal level normal Discontinue antibiotics Potassium supplement Status: Chronic
[2017-11-27] MEDS: Pantoprazole 20 mg EC Tab PO SCH (10:42)
[2017-11-27] MEDS ORDERED: Potassium Chloride 20 mEq/15 ml LIQ UD PO ONE (10:45)
--- NOTE | 2017-11-27 11:25 | PN ---
Copied To: Juventino Valentin DO Attending MD: Juventino Valentin DO DATE: 11/27/2017 SUBJECTIVE: She needed Ativan last night to get her to get some rest. She was on a one-to-one now. I am hoping to get her to [facility] for subacute rehab or [place] or [facility]. We will check another chest x-ray on her today. She is on ceftriaxone, heparin subcutaneously, Lasix IV, Namenda, Protonix, and Zithromax. PHYSICAL EXAMINATION: VITAL SIGNS: 97.8 temp, 62 pulse, 104/55 blood pressure, 18 respiratory rate, 96% O2 sat on room air. HEENT: Head is atraumatic and normocephalic. HEART: Regular rate. LUNGS: Decreased breath sounds. ABDOMEN: Soft. EXTREMITIES: No edema anymore. LABORATORY DATA: Labs are pending. Yesterday's CBC was fine, and as of , it was very good. Blood sugar was 124. AST was 46, total protein was 9.2, vitamin B12 was 339, folate was 8.9, TSH was 0.99, BNP was 6990. I will recheck BNP tomorrow and chest x-ray today. ASSESSMENT AND PLAN: She can get to subacute rehab before she goes home with family. will be the third overnight tomorrow. She is here for congestive heart failure, change in mentation, unsteady gait, possible pneumonia picture. Pneumonia was seen on x-ray. We will continue with aggressive treatment and care. The plan is to discontinue the one-to-one, so we can get her out tomorrow. acute on chronic diastolic CHF Juventino Valentin DO MTDD
--- NOTE | 2017-11-27 11:28 | RAD ---
Date of service: 11/27/2017 HISTORY: chf COMPARISON: Chest radiograph dated 11/24/2017. TECHNIQUE: Chest PA and lateral FINDINGS: LUNGS: No active pulmonary disease. Biapical pleural-parenchymal scarring. PLEURA: No significant pleural effusion identified. No pneumothorax apparent. CARDIOVASCULAR: Atherosclerotic aortic calcifications. Cardiomediastinal silhouette stably enlarged. OSSEOUS STRUCTURES: Unchanged. VISUALIZED UPPER ABDOMEN: Upper quadrant surgical clips redemonstrated. OTHER FINDINGS: None. IMPRESSION: No active disease.
[2017-11-27] MEDS: Azithromycin 500mg/250ML NS 500 MG/250 ML BAG IVPB SCH (20:55)
--- NOTE | 2017-11-27 21:28 | PN ---
Copied To: Lukas Mack MD Attending MD: Lukas Mack MD DATE: 11/27/2017 SUBJECTIVE: The patient is still confused and unsteady gait. I spoke with social services technician. The patient's son wants to take the patient home as the patient refusing to go for subacute rehab; however, the patient may need to be referred to APS as the patient left at home for long periods of time, the son is an [employer] charter coach driver. PHYSICAL EXAMINATION: VITAL SIGNS: Temperature is 98.1, pulse 89, blood pressure 112/61, respirations 20, oxygen saturation 97%. REVIEW OF SYSTEMS: GENERAL: The patient is alert but confusing in her room. Has been one-to-one safety monitoring. SKIN: No diaphoresis. HEENT: No headache. No dizziness. NECK: Supple. RESPIRATORY: No dyspnea. CARDIOVASCULAR: No chest pain. GASTROINTESTINAL: No nausea or vomiting. EXTREMITIES: Gait is unsteady. MUSCULOSKELETAL: Feels weak. NEUROLOGIC: Alert with periods of confusion. MENTAL STATUS EXAMINATION: Elderly female who looks her stated age. Oriented x2. The patient's mood is dysphoric, anxious. The patient wants to go home. Affect is restricted. Speech is spontaneous. Thought process is confused. Thought content is preoccupied about going home. No psychosis. No suicidal or homicidal ideation. Attention and memory seem to be limited. The patient is only oriented x2. Insight and judgment are limited. Impulse control is fair at this time. IMPRESSION: Dementia with mood changes. PLAN AND RECOMMENDATION: The patient is seen and meds reviewed. Continue present management. Psych kauffman, the patient may go home to the family but may need to be referred to APS. Continue treatment plan as outlined. The patient earlier was given Ativan as she was restless, and now the patient is on Ativan 0.5 mg p.o. t.i.d. given by Dr. Valentin for agitation. Lukas Mack MD
[2017-11-28 07:43] LABS: ALBUMIN 3.7 g/dL (3.5-5.0); ALT/SGPT 31 U/L (9-52); AST/SGOT 43 U/L (14-36); BLOOD UREA NITROGEN 17 mg/dL (7-17); CALCIUM 9.1 mg/dl (8.6-10.4); GFR NON-AFRICAN AMERICAN 60
[2017-11-28 07:46] LABS: BASO % 0.4 % (0.0-2.0); EOS # 0.2 K/uL (0.0-0.7); EOS % 2.9 % (0.0-4.0); LYMPH # 2.5 K/uL (1.0-4.3); LYMPH % 45.3 % (20.0-40.0); MEAN CELL VOLUME 89.2 fL (81.0-99.0); MEAN CORPUSCULAR HEMOGLOBIN 30.3 pg (27.0-31.0); MEAN PLATELET VOLUME 8.5 fL (7.2-11.7); MONO # 0.5 K/uL (0.0-0.8); MONO % 9.5 % (0.0-10.0); NEUT # 2.3 K/uL (1.8-7.0); NEUT % 41.9 % (50.0-75.0); NRBC % 0.3 % (0.0-2.0); RBC 3.95 Mil/uL (3.80-5.20); RED CELL DISTRIBUTION WIDTH 14.3 % (11.5-14.5); WHITE BLOOD COUNT 5.6 K/uL (4.8-10.8)
[2017-11-28 07:55] LABS: B-TYPE NATRIURETIC PEPTIDE 2690 pg/mL (0-900)
[2017-11-28] MEDS: Pantoprazole 20 mg EC Tab PO SCH (09:40)
--- NOTE | 2017-11-28 09:50 | PQF ---
PROVIDER RESPONSE TEXT: In note REVIEWER QUERY TEXT: CHF Acuity and Type Congestive Heart Failure is documented in the Medical Record. Please document the type and acuity (in cludes probable or suspected) Such as: Type: -- Systolic -- Diastolic -- Combined -- Other, please specify Acuity: -- Acute -- Chronic -- Acute on chronic -- Other, please specify Also please document the underlying cause of the CHF (includes probable or suspected) The patient's Clinical Indicators include: Pt. is 81 Y.O. female was found on the street with chief complaint Weakness/Neurologic Deficit. PMH x. Dementia, Brain Sx. Siezure, HTN. Admitted with Dx. of CHF, Pneumonia, Dementia. Echo: LVEF- 71%, mild to moderate left ventricular hypertrophy toward to apex but no significant intr acavitary pressure difference. Left ventricular function is normal. CXR: Cardiomegaly, mild pulmonary venous congestion. Minimal rt. pleural effusion, possible low-densi ty infiltrate. PBNP- 6990 Tx: Lasix 40 mg IV OD, Rocephin 1 Gm IV OD. Query created by: Julisa Faith on 11/26/2017 2:14 PM Electronically signed by: Juventino Valentin DO 11/28/2017 9:46 AM
--- NOTE | 2017-11-28 16:04 | CP.PCM.PN ---
Subjective - Date & Time of Evaluation Date of Evaluation: 11/28/17 Time of Evaluation: 10:00 - Subjective Subjective: patient seen and examined Patient is awake No shortness of breath Afebrile Objective - Vital Signs/Intake and Output Vital Signs (last 24 hours): Temp Pulse Resp BP Pulse Ox 97.2 F L 70 20 113/68 99 11/28/17 07:00 11/28/17 07:00 11/28/17 07:00 11/28/17 09:40 11/28/17 07:00 Intake and Output: 11/28/17 11/28/17 06:59 18:59 Intake Total 600 Balance 600 - Medications Medications: Current Medications Furosemide (Lasix) 40 mg IVP DAILY [facility] Last Admin: 11/28/17 09:40 Dose: 40 mg Heparin Sodium (Porcine) (Heparin) 5,000 units SC Q12 [facility] Last Admin: 11/28/17 09:40 Dose: 5,000 units Lorazepam (Ativan) 0.5 mg PO TID PRN PRN Reason: Agitation Last Admin: 11/27/17 17:33 Dose: 0.5 mg Memantine (Namenda) 10 mg PO DAILY [facility] Last Admin: 11/28/17 09:40 Dose: 10 mg Pantoprazole Sodium (Protonix Ec Tab) 20 mg PO DAILY [facility] Last Admin: 11/28/17 09:40 Dose: 20 mg - Labs Labs: 11/28/17 07:18 11/28/17 07:18 PT 12.5 SECONDS (9.7-12.2) H 11/24/17 21:29 INR 1.1 11/24/17 21:29 APTT 39 SECONDS (21-34) H 11/24/17 21:29 - Head Exam Head Exam: ATRAUMATIC, NORMOCEPHALIC - ENT Exam ENT Exam: Mucous Membranes Moist - Neck Exam Neck Exam: Normal Inspection - Respiratory Exam Respiratory Exam: Clear to Ausculation Bilateral Assessment and Plan (1) CHF (congestive heart failure) Status: Chronic
--- NOTE | 2017-11-28 17:11 | CP.PCM.PN ---
<Yaneli Verde - Last Filed: 11/28/17 17:08> Subjective - Date & Time of Evaluation Date of Evaluation: 11/28/17 Time of Evaluation: 13:11 - Subjective Subjective: Cardiology Progress Note- Dr. Rosenberg's service Patient seen and examined bedside. Per clinical partner, patient appears confused at times requiring constant 1:1 monitoring. Patient apparently likes to have privacy when using the bathroom, but has a tendency to make a mess- giving the care team a difficult time. Patient denies current complaints at this time. Objective - Vital Signs/Intake and Output Vital Signs (last 24 hours): Temp Pulse Resp BP Pulse Ox 98.2 F 73 20 112/60 99 11/28/17 15:00 11/28/17 15:00 11/28/17 15:00 11/28/17 15:00 11/28/17 15:00 Intake and Output: 11/28/17 11/28/17 06:59 18:59 Intake Total 600 Balance 600 - Medications Medications: Current Medications Furosemide (Lasix) 40 mg IVP DAILY [facility] Last Admin: 11/28/17 09:40 Dose: 40 mg Heparin Sodium (Porcine) (Heparin) 5,000 units SC Q12 [facility] Last Admin: 11/28/17 09:40 Dose: 5,000 units Lorazepam (Ativan) 0.5 mg PO TID PRN PRN Reason: Agitation Last Admin: 11/27/17 17:33 Dose: 0.5 mg Memantine (Namenda) 10 mg PO DAILY [facility] Last Admin: 11/28/17 09:40 Dose: 10 mg Pantoprazole Sodium (Protonix Ec Tab) 20 mg PO DAILY [facility] Last Admin: 11/28/17 09:40 Dose: 20 mg - Labs Labs: 11/28/17 07:18 11/28/17 07:18 PT 12.5 SECONDS (9.7-12.2) H 11/24/17 21:29 INR 1.1 11/24/17 21:29 APTT 39 SECONDS (21-34) H 11/24/17 21:29 - Constitutional Appears: Non-toxic, No Acute Distress - Head Exam Head Exam: ATRAUMATIC, NORMAL INSPECTION - Eye Exam Eye Exam: EOMI Pupil Exam: absent: Miosis, Mydriatic - ENT Exam ENT Exam: Mucous Membranes Moist - Neck Exam Neck Exam: Full ROM - Cardiovascular Exam Cardiovascular Exam: +S1, +S2. absent: JVD - GI/Abdominal Exam GI & Abdominal Exam: Soft, Normal Bowel Sounds - Extremities Exam Extremities Exam: Full ROM, Normal Capillary Refill, Pedal Edema (trace). absent: Tenderness - Neurological Exam Neurological Exam: Altered, Awake Additional comments: facial asymmetry appreciated- (chronic) - Psychiatric Exam Psychiatric exam: Flat Affect - Skin Skin Exam: Normal Color, Warm Assessment and Plan (1) Altered mental status Status: Acute (2) CHF (congestive heart failure) Status: Chronic (3) HTN (hypertension) Status: Acute (4) History of seizures Status: Acute (5) Prophylactic measure Status: Acute - Assessment and Plan (Free Text) Assessment: CHF (congestive heart failure) Assessment and Plan: Elevated BNP 6990 Echo notes mild to moderate LVH. Mild pulm HTN. Trace aortic regurgitation. Aortic root shows mild to moderate sclerocalcific changes. Refer to complete report. EF 71% On Lasix 40 mg IV daily Troponin x1 negative Status: Chronic HTN (hypertension) Assessment and Plan: Home Antihypertensive agents unknown. Normotensive at this time. Will monitor and manage accordingly. Status: Acute History of seizures Assessment and Plan: Unclear whether patient is on maintenance antiepileptics Home medications will need to be confirmed. Status: Acute Dementia Assessment and Plan: Patient has underlying history of dementia. On Memantine. Considerations for 1:[address]- negative for bleed. Encephalomalacia , atrophy of cerebrum and cerebellum noted. Refer to complete report. Recommendations to rule out underlying infection Management per primary. Patient needs to be in the company of a template checker upon discharge planning. Status: Acute Prophylactic measure Assessment and Plan: Heparin SC Q12 PPI 20 mg PO daily Status: Acute <Porfirio Rosenberg - Last Filed: 11/28/17 20:40> Objective - Vital Signs/Intake and Output Vital Signs (last 24 hours): Temp Pulse Resp BP Pulse Ox 98.2 F 73 20 112/60 99 11/28/17 15:00 11/28/17 15:00 11/28/17 15:00 11/28/17 15:00 11/28/17 15:00 Intake and Output: 11/28/17 11/29/17 18:59 06:59 Intake Total 600 Balance 600 - Medications Medications: Current Medications Furosemide (Lasix) 40 mg IVP DAILY [facility] Last Admin: 11/28/17 09:40 Dose: 40 mg Heparin Sodium (Porcine) (Heparin) 5,000 units SC Q12 [facility] Last Admin: 11/28/17 09:40 Dose: 5,000 units Lorazepam (Ativan) 0.5 mg PO TID PRN PRN Reason: Agitation Last Admin: 11/27/17 17:33 Dose: 0.5 mg Memantine (Namenda) 10 mg PO DAILY [facility] Last Admin: 11/28/17 09:40 Dose: 10 mg Pantoprazole Sodium (Protonix Ec Tab) 20 mg PO DAILY [facility] Last Admin: 11/28/17 09:40 Dose: 20 mg - Labs Labs: 11/28/17 07:18 11/28/17 07:18 PT 12.5 SECONDS (9.7-12.2) H 11/24/17 21:29 INR 1.1 11/24/17 21:29 APTT 39 SECONDS (21-34) H 11/24/17 21:29 Assessment and Plan - Assessment and Plan (Free Text) Assessment: Patient seen and evaluated personally by pa Plan of care d/w the resident and as documented
--- NOTE | 2017-11-28 17:54 | PN ---
Copied To: Lukas Mack MD Attending MD: Lukas Mack MD DATE: 11/28/2017 SUBJECTIVE: The patient is seen. The patient is presently confused, seen in her room and according to manager social responsibility, her son will take her home. Today the patient has been getting Ativan p.r.n. and also Namenda 10 mg daily for dementia. I did suggest the patient to be referred to APS for followup outside as the patient has dementia. The patient also states that she still has a car at home and advised not to drive due to the patient is at risk for accident, especially with the dementia. She stated she gave her keys to her son. The patient to continue current meds as ordered and to follow up with Dr. Valentin outside. PHYSICAL EXAMINATION: VITAL SIGNS: Temperature is 97.2, pulse is 70, blood pressure 113/68, respirations 20, oxygen saturation 99%. REVIEW OF SYSTEMS: GENERAL: The patient is alert, but confused in her room, offers no complaints. She said she wants to go home. SKIN: No diaphoresis. HEENT: No headache. No dizziness. NECK: Supple. RESPIRATORY: No dyspnea. CARDIOVASCULAR: No chest pain. GASTROINTESTINAL: . EXTREMITIES: Gait is unsteady. MUSCULOSKELETAL: Feels weak. NEUROLOGIC: Alert with significant periods of confusion. MENTAL STATUS EXAMINATION: Elderly female who looks her stated age, oriented x2 to place and person. Speech is spontaneous. Affect is reactive. Mood is dysphoric. Thought process confused. Thought content, the patient wants to go home. No overt psychosis. No suicidal or homicidal ideation. Attention and memory seem to be limited. Insight and judgement are limited. Impulse control is fair at this time. IMPRESSION: Dementia with mood changes as well as history of delirium, hypertension, congestive heart failure. PLAN AND RECOMMENDATIONS: The patient is seen. Meds reviewed. Continue present management. Continue present pysch meds. The patient will be discharged to home today and to follow up with Dr. Valentin as an outpatient. I do suggest that the patient will be referred to APS for followup outside. Lukas Mack MD [facility] # [id number]
[2017-11-29 08:16] VITALS: BP 127/69; PULSE 73; RESP 18; TEMP 98.2; O2SAT 98
[2017-11-29] MEDS: Pantoprazole 20 mg EC Tab PO SCH (09:24)
--- NOTE | 2017-11-29 12:30 | DS ---
Copied To: Juventino Valentin DO Attending MD: SUBJECTIVE: Camila is doing quite well today. She is off the one-to-one, she is on . Today is a good day for her to go to subacute rehab, which is the recommendation from physical therapy. Do also walking with needing help and assistance, high fall risk. She is off the antibiotics, she is only on Ativan, Lasix, Namenda, Protonix. She is alert and comfortable at this time. Mildly confused at her baseline, she has dementia. PHYSICAL EXAMINATION: VITAL SIGNS: 98.3 temperature, 71 pulse, 134/71 blood pressure, 18 respiratory rate, 99% O2 sat on room air. HEENT: Head is atraumatic and normocephalic. She has a left facial droop from a surgery in the past. HEART: Regular rate. LUNGS: Decreased breath sounds, but clear. ABDOMEN: Soft. EXTREMITIES: No edema with left-sided weakness. LABORATORY DATA: Sodium 144, potassium 3.5 yesterday it was replaced. GFR is 43, sugar is 91, magnesium 1.9. Total bili is 0.4, AST is 41, ALT is 34, alkaline phosphatase 77. BNP dropped to 4990 from 6990, doing better. Procalcitonin is less than 0.05. TSH is 0.99. White count is 5, hemoglobin 12, hematocrit 35.4, platelets of 209. ASSESSMENT AND PLAN: There is a window of opportunity to discharge her to subacute rehab. She was seen by Psychiatry and Pulmonary. Chest x-ray is now clear. She was positive for pneumonia when she came in. She can now be discharged. She had pneumonia, congestive heart failure, acute on chronic diastolic congestive heart failure and Ativan is helping her. We should hopefully get her to [facility] or [facility] and she is to be discharged today. Juventino Valentin DO MTDD
--- NOTE | 2017-11-29 20:02 | DS ---
Copied To: Juventino Valentin DO Attending MD: Juventino Valentin DO I am discharging her again. She could not get picked up yesterday. So, I am discharging her again today. She will go home on Ativan, Lasix, Namenda, and Protonix. She is alert, comfortable. She will see me in the office next week. PHYSICAL EXAMINATION: VITAL SIGNS: She has 98.2 temp, 73 pulse, 127/69 blood pressure, 18 respiratory rate, 98% sat on room air. GENERAL: She is alert, comfortable, calm, in good spirits. She knew me when I walked in the room as I had seen her. HEENT: Head is atraumatic and normocephalic. She has left facial droop that is old. HEART: Regular rate. LUNGS: Clear to auscultation. ABDOMEN: Soft. EXTREMITIES: No edema, There were no labs because she was discharged yesterday. Yesterday's labs were very good. CBC was good. SMA-20 was good. The BNP is down to 2690 from 6990, much big improved. She was seen by the mammal keeper and patient access representative. She did well. She is to continue with the same meds and see me in the office in 1 week. She was here for a change in mental status and CHF. Juventino Valentin DO
== END 2017-11-29 09:50 | disposition home health service (06) | DRG 291 ==
LOC: C.ER 21:09 → C.9E 11-25 01:38 → C.5S 11-25 03:21
PROVIDERS: ADMIT Family Medicine; ATTEND Family Medicine
DX: I11.0 Hypertensive heart disease with heart failure (principal); I50.33 Acute on chronic diastolic (congestive) heart failure; J18.9 Pneumonia, unspecified organism; G93.41 Metabolic encephalopathy; F03.91 Unspecified dementia, unspecified severity, with behavioral disturbance; F05 Delirium due to known physiological condition; I27.20 Pulmonary hypertension, unspecified; G40.909 Epilepsy, unspecified, not intractable, without status epilepticus; G93.89 Other specified disorders of brain; Z91.83 Wandering in diseases classified elsewhere; R29.810 Facial weakness; Z98.890 Other specified postprocedural states; Z91.81 History of falling

== ENCOUNTER 2017-12-10 18:46 | Emergency (ER) | payer MEDICARE ==
[2017-12-10 18:58] VITALS: RESP 18
--- NOTE | 2017-12-10 19:27 | C.PDOC ---
History Of Present Illness Patient presents to the ER via EMS with increasing confusion. Patient has a Hx of dementia, she was recently admitted and seen by pulmonary, cardiology, had a CT and echo done that showed all chronic conditions. Unable to obtain Hx from patient due to increased confusion. Time Seen by Provider: 12/10/17 19:27 Chief Complaint (Nursing): Medical Clearance History Per: EMS History/Exam Limitations: no limitations Onset/Duration Of Symptoms: Unknown Current Symptoms Are (Timing): Still Present Severity: None Pain Scale Rating Of: 0 Recent travel outside of the [place]: No Past Medical History Reviewed: Historical Data, Nursing Documentation, Vital Signs Vital Signs: Last Vital Signs Temp 98.8 F 12/10/17 18:57 Pulse 78 12/10/17 18:57 Resp 18 12/10/17 18:57 BP 134/66 12/10/17 18:57 Pulse Ox 99 12/10/17 19:46 - Medical History PMH: Alzheimer's Disease, HTN, Seizures Denies: Anemia, Anxiety, Arthritis, Asthma, Bipolar Disorder, Bronchitis, Cardia Arrhythmia, CHF, COPD, Crohn's Disease, Dementia, Depression, Diverticulitis, Emphysema, Fibromyalgia, Fractures, Gastrointestinal Ulcer, Gall Bladder Disease, HIV, Hypercholesterolemia, Hyperthyroidism, Hypothyroidism , Kidney Stones, Migraine, Mitral Valve Prolapse, Osteoporosis, Pancreatitis, Paranoia, Parkinson's Disease, Peripheral Edema, Pneumonia, Post Traumatic Stress Disorder, Chronic Kidney Disease, Schizophrenia, Sickle Cell Disease, Sexually Transmitted Disease, Sleep Apnea, TIA Surgical History: Denies: Appendectomy, Cholecystectomy, Coronary Stent, Pacemaker Family History: States: Unknown Family Hx - Social History Hx Tobacco Use: No Hx Alcohol Use: No Hx Substance Use: No - Immunization History Hx Tetanus Toxoid Vaccination: No Hx Influenza Vaccination: No Hx Pneumococcal Vaccination: No Review Of Systems Review Of Systems: ROS cannot be obtained secondary to pt's inabilty to answer questions. Physical Exam - Physical Exam Appears: Non-toxic Skin: Warm, Dry Head: Normacephalic Oral Mucosa: Moist Chest: Symmetrical, No Tenderness Cardiovascular: Rhythm Regular Respiratory: No Rales, No Rhonchi, No Wheezing Gastrointestinal/Abdominal: Soft, No Tenderness Neurological/Psych: Other (Orientedx1. Left facial droop, chronic from previous facial surgery.) ED Course And Treatment O2 Sat by Pulse Oximetry: 99 (Room air) Pulse Ox Interpretation: Normal Progress Note: Pt's son is here to parole supervisor his mother. spoke at length about the need to decide on possible snf placement Disposition Counseled Patient/Family Regarding: Studies Performed, Diagnosis, Need For Followup - Disposition Disposition: HOME/ ROUTINE Disposition Time: 19:27 Condition: FAIR Additional Instructions: Please follow up with your doctor Instructions: Dementia (DC) Forms: [facility] ([place]ian) - Clinical Impression Clinical Impression: Medical assessment, Dementia - Scribe Statement The provider has reviewed the documentation as recorded by the Scribadalid Ly All medical record entries made by the Juanibadalid were at my direction and personally dictated by me. I have reviewed the chart and agree that the record accurately reflects my personal performance of the history, physical exam, medical decision making, and the department course for this patient. I have also personally directed, reviewed, and agree with the discharge instructions and disposition.
[2017-12-10 21:42] VITALS: BP 128/74; PULSE 72; TEMP 98.4; O2SAT 98
== END 2017-12-10 21:42 | disposition home or self-care (01) ==
LOC: C.ER 18:46
DX: F03.90 Unspecified dementia, unspecified severity, without behavioral disturbance, psychotic disturbance, mood disturbance, and anxiety (principal)